=== PATIENT | female | born 1965 | race Two or more races ===

== ENCOUNTER 2018-09-17 08:33 | Outpatient (CLI) | payer OTHER ==
[2018-09-23] MEDS ORDERED: ASA81 MG PO (11:01)
[2018-09-23] MEDS ORDERED: POTABA500 MG PO (11:02)
== END 2018-09-17 08:47 | disposition home or self-care (01) ==
LOC: NUCLEAR 08:33
DX: C85.13 Unspecified B-cell lymphoma, intra-abdominal lymph nodes (principal)
CPT/HCPCS: 78815; A9552

== ENCOUNTER 2018-09-24 06:58 | Day surgery (SDC) | payer OTHER ==
[~2018-09-24 06:58] MED LIST: ASA81 MG PO; POTABA500 MG PO
== END 2018-09-24 14:35 | disposition home or self-care (01) ==
LOC: CIR.AMB 06:58
DX: C82.33 Follicular lymphoma grade IIIa, intra-abdominal lymph nodes (principal)
CPT/HCPCS: 36561; C1751

== ENCOUNTER 2019-04-23 07:54 | Outpatient (CLI) | payer OTHER | END 2019-04-23 08:20 | disposition home or self-care (01) | LOC: NUCLEAR 07:54 | DX: C82.03 Follicular lymphoma grade I, intra-abdominal lymph nodes (principal); C82.07 Follicular lymphoma grade I, spleen | CPT/HCPCS: 78815; A9552 ==

== ENCOUNTER 2020-02-29 12:06 | Emergency (ER) | payer OTHER ==
[~2020-02-29] VITALS: Ht 167.6 cm; Wt 89.4 kg
== END 2020-02-29 22:43 | disposition home or self-care (01) ==
LOC: ER 12:06
DX: U07.1 COVID-19 (principal); J16.8 Pneumonia due to other specified infectious organisms; R06.02 Shortness of breath

== ENCOUNTER 2020-03-01 20:29 | Inpatient (IN) | payer OTHER ==
[~2020-03-01] VITALS: Ht 167.6 cm; Wt 89.4 kg
[2020-03-07] MEDS ORDERED: ZINC SULFATE220 M2 PO (15:57)
[2020-03-07] MEDS ORDERED: VITAMIN C500 M1 PO (15:58)
[2020-03-07] MEDS ORDERED: MELATONIN5 M2 PO (15:58)
[2020-03-07] MEDS ORDERED: VITAMIN D3125 MC2 PO (15:58)
[2020-03-07] MEDS ORDERED: DECADRON6 MG PO (15:59)
== END 2020-03-07 17:47 | disposition home or self-care (01) | DRG 177 ==
LOC: ER 20:29 → MEDJ 03-02 13:28
PROVIDERS: ADMIT Internal Medicine; ATTEND Internal Medicine
PROC: 8E0ZXY6 Isolation (ICD-10-PCS; principal; 2020-03-02)
PROC: 4A033R1 Measurement of Arterial Saturation, Peripheral, Percutaneous Approach (ICD-10-PCS; 2020-03-02)
PROC: 3E0F7SF Introduction of Other Gas into Respiratory Tract, Via Natural or Artificial Opening (ICD-10-PCS; 2020-03-02)
PROC: 5A09557 Assistance with Respiratory Ventilation, Greater than 96 Consecutive Hours, Continuous Positive Airway Pressure (ICD-10-PCS; 2020-03-02)
PROC: XW033E5 Introduction of Remdesivir Anti-infective into Peripheral Vein, Percutaneous Approach, New Technology Group 5 (ICD-10-PCS; 2020-03-03)
PROC: 4A12X4Z Monitoring of Cardiac Electrical Activity, External Approach (ICD-10-PCS; 2020-03-03)
DX: U07.1 COVID-19 (principal); J12.89 Other viral pneumonia; C85.90 Non-Hodgkin lymphoma, unspecified, unspecified site; I10 Essential (primary) hypertension; E86.0 Dehydration; R09.02 Hypoxemia

== ENCOUNTER 2020-03-15 15:30 | Inpatient (IN) | payer OTHER ==
[~2020-03-15] VITALS: Ht 167.6 cm; Wt 194.0 kg
[~2020-03-15 15:30] MED LIST changes: +DECADRON6 MG PO; +MELATONIN5 M2 PO; +VITAMIN C500 M1 PO; +VITAMIN D3125 MC2 PO; +ZINC SULFATE220 M2 PO
[2020-04-09] MEDS ORDERED: ZINC SULFATE220 M2 PO (19:32)
[2020-04-09] MEDS ORDERED: VITAMIN C500 M1 PO (19:32)
[2020-04-09] MEDS ORDERED: ADULT LOW DOSE81 M1 PO (19:32)
[2020-04-09] MEDS ORDERED: MEDROLPACK PO (19:32)
[2020-04-09] MEDS ORDERED: Proventyl Hfa 200 ME IH (19:32)
[2020-04-09] MEDS ORDERED: MELATONIN5 M2 PO (19:32)
[2020-04-09] MEDS ORDERED: OMEGA-31000 MG PO (19:32)
== END 2020-04-09 21:03 | DRG 177 ==
LOC: ER 15:30 → MEDJ 03-16 13:45
PROVIDERS: ADMIT Internal Medicine; ATTEND Internal Medicine
PROC: XW033E5 Introduction of Remdesivir Anti-infective into Peripheral Vein, Percutaneous Approach, New Technology Group 5 (ICD-10-PCS; principal; 2020-03-16)
PROC: B44HZZZ Ultrasonography of Bilateral Lower Extremity Arteries (ICD-10-PCS; 2020-03-18)
PROC: BW21YZZ Computerized Tomography (CT Scan) of Abdomen and Pelvis using Other Contrast (ICD-10-PCS; 2020-03-29)
PROC: CW2 Nuclear Medicine, Anatomical Regions, Tomographic (Tomo) Nuclear Medicine Imaging (ICD-10-PCS; 2020-04-01)
DX: U07.1 COVID-19 (principal); J12.89 Other viral pneumonia; D84.9 Immunodeficiency, unspecified; C85.90 Non-Hodgkin lymphoma, unspecified, unspecified site; Z92.21 Personal history of antineoplastic chemotherapy; Z20.822 Contact with and (suspected) exposure to COVID-19; D63.8 Anemia in other chronic diseases classified elsewhere; R09.02 Hypoxemia; I80.8 Phlebitis and thrombophlebitis of other sites

== ENCOUNTER 2020-04-19 10:49 | Outpatient (CLI) | payer OTHER ==
[~2020-04-19 10:49] MED LIST changes: +ADULT LOW DOSE81 M1 PO; +MEDROLPACK PO; +OMEGA-31000 MG PO; +Proventyl Hfa 200 ME IH
== END 2020-04-19 10:57 | disposition home or self-care (01) ==
LOC: RAD 10:49
PROVIDERS: ATTEND Internal Medicine Pulmonary Disease
DX: J12.81 Pneumonia due to SARS-associated coronavirus (principal); U07.1 COVID-19

== ENCOUNTER 2020-04-22 13:40 | Inpatient (IN) | payer OTHER ==
[~2020-04-22] VITALS: Ht 167.6 cm; Wt 87.1 kg
--- NOTE | 2020-04-22 13:59 | NUR ---
PTE REFIERE COVID POSITIVO. PACIENTE CON HISTORIAL DE NON H[place]GKIN LYMPHOMA. SE PRESENTA AMY A DR WELDON, SE MIDEN SIGNOS VITALES Y SE UBICA EN SECCION K.
--- NOTE | 2020-04-22 14:34 | NUR ---
PACIENTE EVALUADA POR DR. QUINTANA, PTE ALERTA Y ORIENTA SE ORIENTA SOBRE TRATAMIENTO. RN Zheng.DEBORAH REALIZA ROBERT DE MUESTRAS Y LAS ENVIA AL LABORATORIO.SE REALIZA EKG. PACIENTE EN ESPERA DE CT. SE MANTIENE BAJO OBSERVACION.
--- NOTE | 2020-04-22 14:45 | NUR ---
SE NOTIFICA ABG'S A MS MICHAELS PERSONAL DE TERAPIA RESPIRATORIA
--- NOTE | 2020-04-22 15:31 | NUR ---
SE RECIBE PACIENTE FEMINA DE 54 ANOS DE EDAD PACIENTE ALERTA,ESTABLA Y ORIENTADA SEGUIMIENTO QUE SE LE SEGUIRA EN EL HOS[facility]ITAL Y ESTA REFIERE ENTENDER
--- NOTE | 2020-04-22 23:26 | NUR ---
SE RECIBE PTE FEMENIA DE 54 YRS ALERTA CONCIENTE Y TRANQUILA EN LA UNIDAD DE SEC-K EN CAMA CON BARANDAS ELEVADA , SE LE ROBERT S/V LA CUAL SE MANTIENE ESTABLE. SE MANTIENE SALIMA DE DOLOR AL MOMENTO.SE OBSERVA CON H/LPATENTE Y SE MANTIENE BAJO OBSERVACION POR CAMBIOS.
--- NOTE | 2020-04-23 07:41 | NUR ---
7:00AM SE RECIBE PTE DEL TURNO ANTERIOR, ALERTA Y ORIENTADA X 3 ESFERAS, EN CAMA NIVEL MAS BAJO, BOWER DE IDENTIFICACION Y BARANDAS ELEVADAS POR PRECAUCION. SE OBSERVA CON CANULA NASAL A 3L/MIN, LA CUAL TOLERA MANTENIENDO BUEN PATRON RESPIRATORIO, SATURANDO 98-100% MARJORIE OXIMETRO DE PULSO. PIEL TIBIA AL TACTO. H/L #20 EN MANO RT PATENTE Y SALIMA DE EDEMA O ERITEMA. PTE PENDIENTE A CONSULTA CON DR HAWK Y DR TWYLA RUBY. 7:38AM SE NOTIFICA VALOR PANICO A DR HAWK Y TEMPERATURA DE PTE 100.7 QUIEN [place]. SE MANTIENE BAJO OBSERVACION.
[2020-04-26] MEDS ORDERED: PROVENTIL HFA6.7 GM (08:20)
[2020-04-27] MEDS ORDERED: BENZONATATE200 M1 PO (18:29)
[2020-04-27] MEDS ORDERED: ZINC SULFATE220 M2 PO (18:29)
[2020-04-27] MEDS ORDERED: OMEGA-3 ACID ETH1 GM PO (18:29)
[2020-04-27] MEDS ORDERED: LASIX20 MG PO (18:29)
[2020-04-27] MEDS ORDERED: VITAMIN C500 M1 PO (18:29)
[2020-04-27] MEDS ORDERED: PREDNISONE PO (18:29)
[2020-04-27] MEDS ORDERED: MELATONIN5 M2 PO (18:29)
== END 2020-04-27 18:46 | disposition home or self-care (01) | DRG 177 ==
LOC: ER 13:40 → MEDJ 04-23 13:54
PROVIDERS: ADMIT Internal Medicine; ATTEND Internal Medicine
PROC: BW24ZZZ Computerized Tomography (CT Scan) of Chest and Abdomen (ICD-10-PCS; 2020-04-22)
PROC: 3E0F7SF Introduction of Other Gas into Respiratory Tract, Via Natural or Artificial Opening (ICD-10-PCS; principal; 2020-04-23)
PROC: 4A12X45 Monitoring of Cardiac Electrical Activity, Ambulatory, External Approach (ICD-10-PCS; 2020-04-23)
DX: U07.1 COVID-19 (principal); J12.82 Pneumonia due to coronavirus disease 2019; C85.90 Non-Hodgkin lymphoma, unspecified, unspecified site; B97.29 Other coronavirus as the cause of diseases classified elsewhere; R09.02 Hypoxemia; D64.9 Anemia, unspecified

== ENCOUNTER → 2020-12-16 | Outpatient (CLI) | payer OTHER ==
[~2020-12-16] MED LIST changes: +BENZONATATE200 M1 PO; +LASIX20 MG PO; +OMEGA-3 ACID ETH1 GM PO; +PREDNISONE PO; +PROVENTIL HFA6.7 GM
== END | disposition home or self-care (01) ==
LOC: NUCLEAR 07:00
PROVIDERS: ATTEND Internal Medicine Hematology & Oncology
DX: C82.03 Follicular lymphoma grade I, intra-abdominal lymph nodes (principal); C82.07 Follicular lymphoma grade I, spleen
CPT/HCPCS: 78816; A9552

== ENCOUNTER 2021-12-20 06:10 | Day surgery (SDC) | payer OTHER ==
[~2021-12-20] VITALS: Ht 167.6 cm; Wt 82.6 kg
== END 2021-12-20 13:00 | disposition home or self-care (01) ==
LOC: CIR.AMB 06:10
PROVIDERS: ATTEND Specialist
DX: C82.33 Follicular lymphoma grade IIIa, intra-abdominal lymph nodes (principal); Z20.822 Contact with and (suspected) exposure to COVID-19; Z88.8 Allergy status to other drugs, medicaments and biological substances; I10 Essential (primary) hypertension; M19.90 Unspecified osteoarthritis, unspecified site